=== PATIENT | female | born 1935 | race Caucasian/White ===

== ENCOUNTER 2018-03-06 12:24 | Emergency (ER) | payer OTHER ==
[~2018-03-06] VITALS: Ht 157.5 cm; Wt 73.5 kg
[~2018-03-06 12:24] MED LIST: ATENOLOL50 MG; GLUCOTROL10 MG; LASIX20 MG; LISINOPRIL40 MG; METOPROLOL SUC100 MG; VITAMIN C500 M1; VITAMIN D1000 UNI1; VITAMIN E200 UNI2
[2018-03-06] MEDS ORDERED: ATENOLOL100 MG (13:05)
== END 2018-03-06 22:39 | disposition home or self-care (01) ==
LOC: ER 12:24
DX: K57.32 Diverticulitis of large intestine without perforation or abscess without bleeding (principal)

== ENCOUNTER 2018-06-05 07:34 | Emergency (ER) | payer OTHER ==
[~2018-06-05] VITALS: Ht 160 cm; Wt 73.5 kg
[~2018-06-05 07:34] MED LIST changes: +ATENOLOL100 MG
[2018-06-05] MEDS ORDERED: METFORMIN HCL500 M2 PO (07:51)
== END 2018-06-05 17:57 | disposition home or self-care (01) ==
LOC: ER 07:34
DX: K59.09 Other constipation (principal)

== ENCOUNTER 2018-07-03 13:56 | Outpatient (CLI) | payer OTHER ==
[~2018-07-03 13:56] MED LIST changes: +METFORMIN HCL500 M2 PO
== END 2018-07-07 13:59 | disposition home or self-care (01) ==
LOC: RAD 13:56
DX: K59.09 Other constipation (principal)

== ENCOUNTER 2018-08-14 11:22 | Emergency (ER) | payer OTHER ==
[~2018-08-14] VITALS: Ht 157.5 cm; Wt 72.6 kg
== END 2018-08-14 20:08 | disposition home or self-care (01) ==
LOC: ER 11:22
DX: K57.92 Diverticulitis of intestine, part unspecified, without perforation or abscess without bleeding (principal)

== ENCOUNTER 2018-09-21 10:28 | Outpatient (CLI) | payer OTHER | END 2018-09-21 10:39 | disposition home or self-care (01) | LOC: LAB 10:28 | DX: D64.89 Other specified anemias (principal); N39.0 Urinary tract infection, site not specified; I10 Essential (primary) hypertension; E03.8 Other specified hypothyroidism; E11.8 Type 2 diabetes mellitus with unspecified complications; E78.89 Other lipoprotein metabolism disorders; E55.9 Vitamin D deficiency, unspecified; I48.91 Unspecified atrial fibrillation; Z12.31 Encounter for screening mammogram for malignant neoplasm of breast; N30.00 Acute cystitis without hematuria; E11.9 Type 2 diabetes mellitus without complications ==

== ENCOUNTER 2018-11-29 05:49 | Day surgery (SDC) | payer OTHER ==
[~2018-11-29 05:49] MED LIST changes: +FORTAMET500 MG PO
== END 2018-11-29 12:10 | disposition home or self-care (01) ==
LOC: CIR.AMB 05:49
DX: R15.9 Full incontinence of feces (principal)
CPT/HCPCS: 64581; C1778

== ENCOUNTER 2018-12-13 05:45 | Day surgery (SDC) | payer OTHER | END 2018-12-13 12:10 | disposition home or self-care (01) | LOC: CIR.AMB 05:45 | DX: R15.9 Full incontinence of feces (principal) ==

== ENCOUNTER 2020-06-12 15:41 | Outpatient (CLI) | payer OTHER | END 2020-06-12 15:45 | disposition home or self-care (01) | LOC: RAD 15:41 | PROVIDERS: ATTEND Internal Medicine | DX: J16.8 Pneumonia due to other specified infectious organisms (principal) ==

== ENCOUNTER 2020-07-28 09:36 | Outpatient (CLI) | payer OTHER | END 2020-07-28 09:41 | disposition home or self-care (01) | LOC: RX STUDY 09:36 | PROVIDERS: ATTEND Internal Medicine | DX: R13.19 Other dysphagia (principal) ==

== ENCOUNTER 2020-09-14 11:15 | Emergency (ER) | payer OTHER ==
[~2020-09-14] VITALS: Ht 157.5 cm; Wt 63.5 kg
== END 2020-09-14 13:34 | disposition home or self-care (01) ==
LOC: ER 11:15
DX: L30.8 Other specified dermatitis (principal)

== ENCOUNTER 2022-03-24 12:46 | Emergency (ER) | payer OTHER ==
[~2022-03-24] VITALS: Ht 157.5 cm; Wt 69.4 kg
[2022-03-24] MEDS ORDERED: TENORMIN50 M1 PO (12:55)
== END 2022-03-24 21:42 | disposition home or self-care (01) ==
LOC: ER 12:46
DX: K57.30 Diverticulosis of large intestine without perforation or abscess without bleeding (principal); R10.84 Generalized abdominal pain; I10 Essential (primary) hypertension; Z20.822 Contact with and (suspected) exposure to COVID-19; Z87.891 Personal history of nicotine dependence

== ENCOUNTER 2022-12-13 18:08 | Emergency (ER) | payer OTHER ==
[~2022-12-13] VITALS: Ht 157.5 cm; Wt 59.0 kg
[~2022-12-13 18:08] MED LIST changes: +TENORMIN50 M1 PO
== END 2022-12-13 21:34 | disposition home or self-care (01) ==
LOC: ER 18:08
DX: J40 Bronchitis, not specified as acute or chronic (principal); Z20.822 Contact with and (suspected) exposure to COVID-19; E11.9 Type 2 diabetes mellitus without complications; I10 Essential (primary) hypertension; E03.9 Hypothyroidism, unspecified

== ENCOUNTER 2022-12-20 00:21 | Emergency (ER) | payer OTHER ==
[~2022-12-20] VITALS: Ht 157.5 cm; Wt 68.0 kg
[2022-12-20] MEDS ORDERED: IRBESARTAN300 MG PO (01:27)
[2022-12-20] MEDS ORDERED: VISTARIL25 MG PO (01:28)
[2022-12-20] MEDS ORDERED: BUDESONIDE0.5 MG/2 M IH (06:16)
[2022-12-20] MEDS ORDERED: ZITHROMAX500 MG PO (06:16)
[2022-12-20] MEDS ORDERED: ALBUTEROL2.5 MG/3 M IH (06:16)
[2022-12-20] MEDS ORDERED: ZYNCOF 20-400120 ML PO (06:16)
== END 2022-12-20 08:14 ==
LOC: ER 00:21
DX: R06.02 Shortness of breath (principal); R05.9 Cough, unspecified; I10 Essential (primary) hypertension; Z20.822 Contact with and (suspected) exposure to COVID-19; Z87.09 Personal history of other diseases of the respiratory system

== ENCOUNTER → 2022-12-22 | Emergency (ER) | payer OTHER ==
[~2022-12-22] VITALS: Ht 157.5 cm; Wt 61.2 kg
[~2022-12-22] MED LIST changes: +ALBUTEROL2.5 MG/3 M IH; +BUDESONIDE0.5 MG/2 M IH; +IRBESARTAN300 MG PO; +VISTARIL25 MG PO; +ZITHROMAX500 MG PO; +ZYNCOF 20-400120 ML PO
== END | disposition home or self-care (01) ==
LOC: ER 12:18
DX: R07.89 Other chest pain (principal)

== ENCOUNTER 2023-12-07 10:23 | Emergency (ER) | payer OTHER ==
[~2023-12-07] VITALS: Ht 160 cm; Wt 61.2 kg
== END 2023-12-07 14:41 | disposition home or self-care (01) ==
LOC: ER 10:24
DX: S93.491A Sprain of other ligament of right ankle, initial encounter (principal); W22.8XXA Striking against or struck by other objects, initial encounter; Y93.89 Activity, other specified; Y92.018 Other place in single-family (private) house as the place of occurrence of the external cause; E11.9 Type 2 diabetes mellitus without complications; I10 Essential (primary) hypertension

== ENCOUNTER → 2024-07-15 | Emergency (ER) | payer OTHER ==
[~2024-07-15] VITALS: Ht 162.6 cm; Wt 71.7 kg
[~2024-07-15] MED LIST changes: +BENADRYL ITCH28.3 G1 TOP; +CEFTRIAXONE SODIUM 1,000 MG VIAL IM ONE; +CEPHALEXIN750 MG PO; +DIPHENHYDRAMINE HCL 50 MG/ML VIAL 1ML IM ONE; +PEPCID AC20 MG PO
[2024-07-15 10:36] LABS: HEMATOCRIT 36.1 % (36.0-45.00); HEMOGLOBIN 12.3 g/dL (12.0-15.00); MEAN CELL VOLUME 90.9 fL (80.00-100.00); MEAN CORPUSCULAR HEMOGLOBIN 30.9 pg (27.00-32.0); PLATELET COUNT 247 K/uL (150-450); RED BLOOD COUNT 3.97 M/uL (4.00-6.00)
[2024-07-15 10:39] LABS: ERYTHROCYTE SEDIMENTATION RATE 10 mm/hr
== END | disposition home or self-care (01) ==
LOC: ER 09:27
PROVIDERS: General Practice
DX: R21 Rash and other nonspecific skin eruption (principal); E11.9 Type 2 diabetes mellitus without complications
CPT/HCPCS: 36415; 96372; 99282; J0696; J3490